=== PATIENT | female | born 1980 | race Caucasian/White ===

== ENCOUNTER → 2017-11-01 | Outpatient (CLI) | payer OTHER | LOC: M RAD 15:44 | DX: M54.12 Radiculopathy, cervical region (principal) ==

== ENCOUNTER → 2017-11-09 | Outpatient (CLI) | payer OTHER | LOC: M PLARAD 11:26 | DX: M50.10 Cervical disc disorder with radiculopathy, unspecified cervical region (principal) | CPT/HCPCS: 72141 ==

== ENCOUNTER → 2018-04-07 | Outpatient (CLI) | payer OTHER | LOC: M RAD 09:37 | DX: J34.1 Cyst and mucocele of nose and nasal sinus (principal); G93.9 Disorder of brain, unspecified | CPT/HCPCS: 70551 ==

== ENCOUNTER → 2018-05-26 | Outpatient (CLI) | payer OTHER | LOC: M WUC 16:10 | DX: S90.32XA Contusion of left foot, initial encounter (principal); S92.515A Nondisplaced fracture of proximal phalanx of left lesser toe(s), initial encounter for closed fracture; X58.XXXA Exposure to other specified factors, initial encounter; Y92.9 Unspecified place or not applicable | CPT/HCPCS: 73630 ==

== ENCOUNTER → 2018-08-25 | Outpatient (REF) | payer OTHER ==
[2018-08-26 14:32] LABS: ANTINUCLEAR ANTIBODIES DIRECT Negative (Negative); Lyme Disease IgG/IgM Antibodie <0.91 ISR (0.00-0.90); Lyme Disease IgM Ab Quantitati <0.80 index (0.00-0.79)
== END ==
LOC: M LABNEURO 11:00
PROVIDERS: ATTEND Psychiatry & Neurology Neurology
DX: G89.29 Other chronic pain (principal); M54.2 Cervicalgia; M54.5 Low back pain

== ENCOUNTER → 2018-10-12 | Outpatient (REF) ==
--- NOTE | 2018-10-12 17:04 | REP ---
LEFT FOOT, FOUR VIEWS: HISTORY: Degenerative joint disease. There is no acute fracture or dislocation. There is narrowing of the first metatarsal phalangeal joint space. The remaining joint spaces are normal in appearance. IMPRESSION:There is no acute fracture or dislocation. Electronically Signed by Abel Kelly MD 10/13/2018 08:57 A
== END ==
LOC: M SMT 15:57
PROVIDERS: ATTEND Internal Medicine
DX: M51.36 Other intervertebral disc degeneration, lumbar region (principal)

== ENCOUNTER → 2019-06-05 | Outpatient (REF) | payer OTHER ==
[2019-06-10 00:16] LABS: HPV HYBRID CAPTURE II Positive (Negative)
== END ==
LOC: M LAB LCGH 12:16
PROVIDERS: ATTEND Obstetrics & Gynecology
DX: Z12.4 Encounter for screening for malignant neoplasm of cervix (principal); R87.610 Atypical squamous cells of undetermined significance on cytologic smear of cervix (ASC-US)

== ENCOUNTER → 2019-08-09 | Outpatient (CLI) | payer OTHER ==
[~2019-08-09] MED LIST: ISOVUE-370 76% 100ML VIAL (Q9967) As Ordered ONE
--- NOTE | 2019-08-09 15:20 | REP ---
SOFT-TISSUE NECK CT STUDY WITH IV CONTRAST: HISTORY: Localized swelling mass and lump. Left occipital mass. Rule out neoplasm. CT CONTRAST DOSE: 75 mL of intravenous Isovue-370. FINDINGS: Digital preliminary country manager radiograph demonstrates cervical discectomy and fusion plating. A BB marker has been affixed to the skin in the left posterior neck at the site of clinical concern. This it is noted posteriorly and on the left laterally at approximately the level of the C2 vertebral body. There is a 5 mm subcutaneous nodule near the skin marker consistent with tiny suboccipital lymph node normal in size. A normal blood vessel is seen here as well. There is no visible adenopathy or soft tissue mass. There are scattered normal-sized cervical lymph nodes. Submandibular and parotid glands are normal and symmetric. Tonsillar and peritonsillar soft tissues are unremarkable. There is no evidence of infrahyoid mass or adenopathy. Thyroid lobes are normal and symmetric. There is a 13 mm mucous retention cyst in the floor the left maxillary sinus. No bony destructive lesion is seen. No intraorbital lesion is seen. The visualized intracranial structures are unremarkable. IMPRESSION: No neck mass or adenopathy is seen. There is a normal sized 5 mm subcutaneous lymph node near the skin marker in the left posterior occipital region. No other mass or adenopathy is seen. Electronically Signed by Ector Hogan MD 08/09/2019 07:06 P
== END ==
LOC: M RAD 08:46
PROVIDERS: ATTEND Otolaryngology
DX: R22.1 Localized swelling, mass and lump, neck (principal)
CPT/HCPCS: 70491; Q9967

== ENCOUNTER → 2020-05-17 | Outpatient (CLI) | payer OTHER ==
[~2020-05-17] MED LIST changes: +ALBU8.5H; +BUSP10TA; +ECOT81TA5 PO; +GABA-1171; +IBUP-1022 PO; -ISOVUE-370 76% 100ML VIAL (Q9967) As Ordered ONE; +LEVO150T7; +PRAZ1CAP; +PROTPAK PO; +SUBO8MIS; +ZOFR4TAB16 PO
--- NOTE | 2020-05-17 09:11 | REP ---
INDICATION: UPPER ABD PAIN MAIN REG. COMPARISON: None. TECHNIQUE: Real-time sonographic evaluation of right upper quadrant performed. FINDINGS: The gallbladder demonstrates no evidence of intraluminal sludge or calculi, wall thickening or pericholecystic fluid. There is no intrahepatic or extrahepatic biliary dilatation, common bile duct measures 5 mm in maximum diameter. The liver and pancreas demonstrates homogeneous echotexture. There is a round homogeneous hyperechoic nodule in the right lobe of the liver measuring 1.6 x 1.6 x 1.8 cm most consistent with a hemangioma. The right kidney demonstrates no hydronephrosis, with a normal size of 10.7 cm in length. No free fluid is seen. There is a trace pericardial effusion. IMPRESSION: No gallstones, gallbladder wall thickening, pericholecystic fluid or biliary dilatation. Round hyperechoic nodule in the right lobe of the liver has a maximum diameter of 1.8 cm and is most consistent with a hemangioma. There is a trace pericardial effusion. <Electronically signed by Keshav Chun > 05/17/20 [id number]
== END ==
LOC: M RAD 07:46
PROVIDERS: ATTEND Internal Medicine Gastroenterology
DX: R10.10 Upper abdominal pain, unspecified (principal)

== ENCOUNTER → 2020-05-26 | Outpatient (CLI) | payer OTHER | LOC: M LABSMTC 10:40 | PROVIDERS: ATTEND Anesthesiology | DX: Z01.812 Encounter for preprocedural laboratory examination (principal); Z20.828 Contact with and (suspected) exposure to other viral communicable diseases | CPT/HCPCS: C9803; U0003 ==

== ENCOUNTER 2020-05-31 08:16 | Day surgery (SDC) | payer OTHER ==
[~2020-05-31] VITALS: Ht 157.5 cm; Wt 45.5 kg
[~2020-05-31 08:16] MED LIST changes: +NS 1,000 ML IV ONE
[2020-05-31] MEDS ORDERED: propofoL 200 MG/20 ML VIAL As Ordered ONE ×2 (09:05→09:33)
[2020-05-31] MEDS ORDERED: LIDOCAINE 2% 100MG/5ML SDV (FOR ANES.) As Ordered ONE (09:05)
--- NOTE | 2020-05-31 09:38 | ROOR ---
Patient Name: Meeta Jolly Procedure Date: 05/31/2020 9:23 AM Date of : 1980 Age: 39 Room: [facility] Gender: Female Note Status: Finalized Procedure: Upper Endoscopy + Biopsies Indications: Oral phase dysphagia, Dysphagia Providers: Vincent Osei MD Referring MD: SPRING PARKER DO Requesting Provider: Medicines: Monitored Anesthesia Care Complications: No immediate complications. Procedure: Pre-Anesthesia Assessment: - The heart rate, respiratory rate, oxygen saturations, blood pressure, adequacy of pulmonary ventilation, and response to care were monitored throughout the procedure. The Endoscope was introduced through the mouth, and advanced to the second part of duodenum. The upper GI endoscopy was accomplished without difficulty. The patient tolerated the procedure well. Findings: The Z-line was regular and was found 40 cm from the incisors. Multiple biopsies were obtained with cold forceps for evaluation to rule out Buck's Esophagus randomly at the gastroesophageal junction. The exam was otherwise without abnormality. No other significant abnormalities were identified in a careful examination of the stomach. The exam of the duodenum was otherwise normal. Impression: - Z-line regular, 40 cm from the incisors. - The examination was otherwise normal. - Multiple biopsies were obtained at the gastroesophageal junction. - The examination was otherwise normal. Recommendation: - Patient has a contact number available for emergencies. The signs and symptoms of potential delayed complications were discussed with the patient. Return to normal activities tomorrow. Written discharge instructions were provided to the patient. - High fiber diet. - Discharge patient to home. - Follow an antireflux regimen. - Continue present medications. - Return to referring physician. - The findings and recommendations were discussed with the patient. Vincent Osei MD Vincent Osei MD 05/31/2020 9:37:50 AM Electronically signed by Vincent Osei MD Number of Addenda: 0 Note Initiated On: 05/31/2020 9:23 AM Estimated Blood Loss: Estimated blood loss: none.
--- NOTE | 2020-05-31 09:51 | ROOR ---
Patient Name: Meeta Jolly Procedure Date: 05/31/2020 9:25 AM Date of : 1980 Age: 39 Room: [facility] Gender: Female Note Status: Finalized Procedure: Total Colonoscopy to Cecum Indications: Rectal bleeding, Change in bowel habits Providers: Vincent Osei MD Referring MD: SPRING PARKER DO Requesting Provider: Medicines: Monitored Anesthesia Care Complications: No immediate complications. Procedure: Pre-Anesthesia Assessment: - The heart rate, respiratory rate, oxygen saturations, blood pressure, adequacy of pulmonary ventilation, and response to care were monitored throughout the procedure. The Colonoscope was introduced through the anus and advanced to the cecum, identified by appendiceal orifice and ileocecal valve. The colonoscopy was performed without difficulty. The patient tolerated the procedure well. The quality of the bowel preparation was excellent. Findings: The perianal and digital rectal examinations were normal. Non-bleeding internal hemorrhoids were found during retroflexion. The hemorrhoids were small and Grade I (internal hemorrhoids that do not prolapse). No other significant abnormalities were identified in a careful examination of the remainder of the colon. The exam was otherwise without abnormality on direct and retroflexion views. Impression: - Non-bleeding internal hemorrhoids. - The examination was otherwise normal on direct and retroflexion views. - No specimens collected. - The exam was otherwise normal to the cecum. Recommendation: - Patient has a contact number available for emergencies. The signs and symptoms of potential delayed complications were discussed with the patient. Return to normal activities tomorrow. Written discharge instructions were provided to the patient. - High fiber diet. - Discharge patient to home. - Continue present medications. - Repeat colonoscopy at age 51 for screening purposes. - Return to referring physician. - The findings and recommendations were discussed with the patient. Vincent Osei MD Vincent Osei MD 05/31/2020 9:51:10 AM Electronically signed by Vincent Osei MD Number of Addenda: 0 Note Initiated On: 05/31/2020 9:25 AM Estimated Blood Loss: Estimated blood loss: none.
[2020-05-31 10:15] VITALS: BP 132/81
== END 2020-05-31 09:35 | disposition home or self-care (01) ==
LOC: M OPP 08:16
PROVIDERS: ATTEND Internal Medicine Gastroenterology
DX: K62.5 Hemorrhage of anus and rectum (principal); K64.0 First degree hemorrhoids; R19.4 Change in bowel habit; R13.11 Dysphagia, oral phase; R63.4 Abnormal weight loss; K31.89 Other diseases of stomach and duodenum; F17.210 Nicotine dependence, cigarettes, uncomplicated; M79.7 Fibromyalgia; E03.9 Hypothyroidism, unspecified; Z79.82 Long term (current) use of aspirin; Z79.899 Other long term (current) drug therapy; Z88.1 Allergy status to other antibiotic agents; Z88.5 Allergy status to narcotic agent; Z88.8 Allergy status to other drugs, medicaments and biological substances; Z91.040 Latex allergy status; Z91.048 Other nonmedicinal substance allergy status

== ENCOUNTER → 2021-05-27 | Outpatient (CLI) | payer OTHER ==
[~2021-05-27] MED LIST changes: -NS 1,000 ML IV ONE
--- NOTE | 2021-05-27 19:12 | REP ---
INDICATION: LT NECK MASS. COMPARISON: None. TECHNIQUE: Real-time and Doppler imaging FINDINGS: Multiple images of the left posterior neck and occipital region show a small hypoechoic, well-marginated and parallel lesion in the subcutaneous tissues measuring approximately 6.2 x 2 0.6 mL with a small amount of vascularity. This likely is a small lymph node. No other definite abnormality is appreciated. IMPRESSION: Probable small lymph node in the subcutaneous tissues on the left but with no large discrete mass otherwise noted. <Electronically signed by Krishan Montez > 05/27/21 [id number]
== END ==
LOC: M RAD 14:01
PROVIDERS: ATTEND Otolaryngology
DX: R22.1 Localized swelling, mass and lump, neck (principal)

== ENCOUNTER → 2021-08-15 | Outpatient (CLI) | payer OTHER ==
[~2021-08-15] MED LIST changes: +ISOVUE-370 76% 100ML VIAL As Ordered ONE
== END ==
LOC: M RAD 15:01
PROVIDERS: ATTEND Otolaryngology
DX: R22.1 Localized swelling, mass and lump, neck (principal); J98.11 Atelectasis; J34.1 Cyst and mucocele of nose and nasal sinus; E04.2 Nontoxic multinodular goiter
CPT/HCPCS: 70491; Q9967

== ENCOUNTER → 2021-09-25 | Outpatient (CLI) | payer OTHER ==
[~2021-09-25] MED LIST changes: -ISOVUE-370 76% 100ML VIAL As Ordered ONE
== END ==
LOC: M RAD 11:09
PROVIDERS: ATTEND Otolaryngology
DX: E06.3 Autoimmune thyroiditis (principal)

== ENCOUNTER → 2022-04-10 | Outpatient (CLI) | payer OTHER | LOC: M WHC 13:51 | PROVIDERS: ATTEND Otolaryngology | DX: E04.2 Nontoxic multinodular goiter (principal) ==

== ENCOUNTER → 2023-01-06 | Outpatient (CLI) | payer OTHER ==
[~2023-01-06] MED LIST changes: +E-Z-GAS II EFFERVESCENT PACKET (SODIUM BICARB./CITRIC ACID/SIMETHICONE) As Ordered ONE; +E-Z-HD 98% w/w 340GM SUSP BTL As Ordered ONE; +E-Z-PAQUE 96% w/w SUSP 176GM BTL As Ordered ONE; +ISOVUE-370 76% 100ML VIAL As Ordered ONE
== END ==
LOC: M RAD 08:01
PROVIDERS: ATTEND Otolaryngology
DX: R13.10 Dysphagia, unspecified (principal); K14.8 Other diseases of tongue
CPT/HCPCS: 70491; 74220; Q9967

== ENCOUNTER → 2023-04-05 | Outpatient (CLI) | payer OTHER ==
[~2023-04-05] MED LIST changes: -E-Z-GAS II EFFERVESCENT PACKET (SODIUM BICARB./CITRIC ACID/SIMETHICONE) As Ordered ONE; -E-Z-HD 98% w/w 340GM SUSP BTL As Ordered ONE; -E-Z-PAQUE 96% w/w SUSP 176GM BTL As Ordered ONE; -ISOVUE-370 76% 100ML VIAL As Ordered ONE
== END ==
LOC: M RAD 09:40
PROVIDERS: ATTEND Otolaryngology
DX: E06.3 Autoimmune thyroiditis (principal)

== ENCOUNTER → 2023-06-23 | Outpatient (CLI) | payer OTHER ==
[2023-06-23 09:44] LABS: HEMATOCRIT 41.2 % (36.0-47.0); HEMOGLOBIN 13.9 g/dl (12.0-15.5); MEAN CORPUSCULAR HGB CONC 33.7 g/dl (32.0-36.5); MEAN CORPUSCULAR VOLUME 100.7 fl (80.0-96.0); PLATELET COUNT, AUTOMATED 298 10^3/uL (150-450); RED BLOOD COUNT 4.09 10^6/uL (4.00-5.40); WHITE BLOOD COUNT 7.9 10^3/uL (4.0-10.0)
[2023-06-23 09:44] LABS: APPEARANCE, URINE HAZY (CLEAR); BACTERIA, URINE AUTO NEGATIVE (NEGATIVE); BILIRUBIN, URINE AUTO NEGATIVE (NEGATIVE); BLOOD, URINE BLOOD NEGATIVE (NEGATIVE); COLOR, URINE YELLOW (YELLOW); GLUCOSE, URINE (UA) AUTO NEGATIVE (NEGATIVE); KETONE, URINE AUTO NEGATIVE (NEGATIVE); LEUKOCYTE ESTERASE, URINE AUTO NEGATIVE (NEGATIVE); MUCUS, URINE SMALL (NEGATIVE); NITRITE, URINE AUTO NEGATIVE (NEGATIVE); PROTEIN, URINE AUTO NEGATIVE (NEGATIVE); RBC, URINE AUTO 2 /HPF (0-3); SPECIFIC GRAVITY URINE AUTO 1.029 (1.002-1.035); SQUAMOUS EPITHELIAL CELL UR AU 3 /HPF (0-6); WBC, URINE AUTO 0 /HPF (0-3)
[2023-06-23 10:13] LABS: AMYLASE 48 U/L (30-118)
[2023-06-23 10:15] LABS: LIPASE 40 U/L (12-53)
[2023-06-23 10:17] LABS: ALBUMIN 3.9 G/DL (3.2-5.2); ALKALINE PHOSPHATASE 73 U/L (46-116); ALT/SGPT 37 U/L (7.0-40); AST/SGOT 30 U/L (<34); BILIRUBIN,TOTAL 0.2 MG/DL (0.3-1.2); BLOOD UREA NITROGEN 15 MG/DL (9-23); CARBON DIOXIDE LEVEL 29 MMOL/L (20-31); CHLORIDE LEVEL 107 MMOL/L (98-107); GLOMERULAR FILTRATION RATE > 60.0 (>58); GLUCOSE, FASTING 64 MG/DL (60-100); POTASSIUM SERUM 4.1 MMOL/L (3.5-5.1); SODIUM LEVEL 139 MMOL/L (136-145); TOTAL PROTEIN 7.1 G/DL (5.7-8.2)
[2023-06-23 10:19] LABS: THYROID STIMULATING HORMONE > 150.000 uIU/ML (0.55-4.78)
[2023-06-23 10:34] LABS: HEMOGLOBIN A1c 5.3 % (4.0-6.0)
[2023-06-23 15:34] LABS: FREE T4 0.47 NG/DL (0.89-1.76)
== END ==
LOC: M RAD 08:04
PROVIDERS: ATTEND Internal Medicine
DX: R10.9 Unspecified abdominal pain (principal); E03.9 Hypothyroidism, unspecified; Z79.899 Other long term (current) drug therapy; K76.0 Fatty (change of) liver, not elsewhere classified; D18.03 Hemangioma of intra-abdominal structures